=== PATIENT | male | born 1935 | race Caucasian/White ===

== ENCOUNTER 2019-10-30 17:10 | Emergency (ER) | payer MEDICARE, OTHER ==
[~2019-10-30] VITALS: Ht 185.4 cm; Wt 92.0 kg
[2019-10-30] MEDS ORDERED: ASPIRIN81 MG PO (17:45)
[2019-10-30] MEDS ORDERED: PLAVIX75 MG PO (17:46)
[2019-10-30] MEDS ORDERED: METOPROL TAR25 MG PO (17:46)
[2019-10-30] MEDS ORDERED: COZAAR100 MG PO (17:46)
[2019-10-30] MEDS ORDERED: LIPITOR40 M1 PO (17:46)
[2019-10-30] MEDS ORDERED: XELPROS0.005 % OU (17:47)
[2019-10-30 18:26] LABS: HEMATOCRIT 36.8 % (39.0-50.0); IMMATURE GRANULOCYTES 0.3 % (0.0-5.0); MEAN CORPUSCULAR HGB 25.1 pG CALC (26.0-32.0); MEAN CORPUSCULAR HGB CONC 29.9 g/dL CAL (32.0-36.0); NEUT# 4.43 thou/uL (1.82-7.42); RED BLOOD COUNT 4.38 mill/uL (4.70-6.10); RED CELL DISTRI WIDTH 17.6 % (11.5-15.5)
[2019-10-30 18:44] LABS: ALBUMIN 4.1 g/dL (3.2-5.0); ALKALINE PHOSPHATASE 98 u/l (38-126); ANION GAP 11 (6-22 (CALC)); BILIRUBIN, TOTAL 0.5 mg/dL (0.0-1.4); BUN 28 mg/dL (8-23); BUN/CREATININE RATIO 21 (12-20 (CALC)); CARBON DIOXIDE 27 mmol/l (22-30); CHLORIDE 101 mmol/l (95-108); CREATININE 1.3 mg/dL (0.7-1.3); GFR 53 ML/MIN (>=60 (CALC)); GFR FOR AFR.AMER. > 60 ML/MIN (>=60 (CALC)); POTASSIUM 4.4 mmol/l (3.5-5.1); SGOT/AST 19 u/l (19-48); SODIUM 134 mmol/l (137-146); TOTAL PROTEIN 6.8 g/dL (6.3-8.2)
[2019-10-30 20:37] LABS: URINE BILIRUBIN - DIPSTICK NEGATIVE (NEGATIVE); URINE BLOOD DIPSTICK LARGE (NEGATIVE); URINE COLOR RED; URINE GLUCOSE - DIPSTICK NEGATIVE (NEGATIVE); URINE KETONE TRACE mg/dL (NEGATIVE); URINE PROTEIN - DIPSTICK >=300 mg/dL (NEG-TRACE)
[2019-10-30 20:39] LABS: URINE LEUK ESTERASE SMALL (NEGATIVE); URINE NITRITE - DIPSTICK POSITIVE (Negative)
[2019-10-30 20:45] LABS: URINE RBC TNTC RBC/hpf (0-5)
[2019-10-30] MEDS ORDERED: CIPROFLOXACN500 MG PO (21:13)
[2019-10-30] MEDS ORDERED: TAMSULOSIN0.4 MG PO (21:13)
[2019-10-30] MEDS ORDERED: COLACE100 MG PO (21:13)
[2019-10-30 21:22] VITALS: BP 199/85
== END 2019-10-30 21:30 | disposition home or self-care (01) ==
LOC: ED 17:10
PROVIDERS: Student in an Organized Health Care Education/Training Program
DX: N39.0 Urinary tract infection, site not specified (principal); N40.1 Benign prostatic hyperplasia with lower urinary tract symptoms; R33.8 Other retention of urine; K59.00 Constipation, unspecified; N26.1 Atrophy of kidney (terminal); J43.9 Emphysema, unspecified; I69.320 Aphasia following cerebral infarction; F17.210 Nicotine dependence, cigarettes, uncomplicated; Z95.1 Presence of aortocoronary bypass graft
CPT/HCPCS: Q9967